=== PATIENT | female | born 1990 | race Two or more races ===

== ENCOUNTER 2022-05-31 23:21 | Emergency (ER) | payer MEDICAID ==
[~2022-05-31] VITALS: Ht 160 cm; Wt 100.0 kg
[2022-05-31 23:56] VITALS: BP 151/75
[2022-06-01 01:07] LABS: Urine Specific Gravity 1.004 (1.001-1.035)
[2022-06-01 01:08] LABS: Urine Blood 3+ /uL (Negative)
== END 2022-06-01 06:16 | disposition home or self-care (01) ==
LOC: ER 23:21
DX: O20.0 Threatened abortion (principal); Z3A.10 10 weeks gestation of pregnancy
CPT/HCPCS: 36415; 76801; 81001; 84702; 86850; 86900; 86901